=== PATIENT | female | born 1960 | race Asian ===

== ENCOUNTER 2018-06-10 00:48 | Inpatient (IN) | payer MEDICAID ==
[~2018-06-10] VITALS: Ht 170.2 cm; Wt 63.5 kg
[2018-06-10 02:06] LABS: BASOPHIL % 0.9 % (0-2); PLATELET COUNT 189 x10^3mcL (130-400); RED CELL DISTRIBUTION WIDTH 12.3 % (11.5-14.5)
[2018-06-10 02:14] LABS: CALCIUM 8.8 mg/dL (8.5-10.1); CARBON DIOXIDE 27.4 mmol/L (21-32); CHLORIDE SERUM 105 mmol/L (98-107); CREATININE SERUM 0.8 mg/dL (0.6-1.0); GFR1 > 60 mL/min; GLUCOSE SERUM 122 mg/dL (74-106); POTASSIUM SERUM 3.7 mmol/L (3.5-5.1); SODIUM SERUM 142 mmol/L (136-145)
[2018-06-10 02:19] LABS: ALBUMIN 4.2 g/dL (3.4-5.0); ALKALINE PHOSPHATASE 83 U/L (46-116); ALT/SGPT 22 U/L (14-59); AST/SGOT 15 U/L (15-37); BILIRUBIN TOTAL 0.34 mg/dL (0.20-1.00); TOTAL PROTEIN, SERUM 7.7 g/dL (6.4-8.2)
[2018-06-10 03:39] LABS: AMYLASE 94 U/L (25-115); CHOLESTEROL 158 mg/dL (<200); LIPASE 247 IU/L (73-393); MAGNESIUM 2.3 mg/dL (1.8-2.4); PHOSPHOROUS 3.8 mg/dL (2.5-4.9)
[2018-06-10 03:40] LABS: CHOLESTEROL/HDL RATIO 4.8; HDL CHOLESTEROL 33 mg/dL (40-60); TRIGLYCERIDES 508 mg/dL (<150)
[2018-06-10 03:47] VITALS: BP 146/83
[2018-06-10 05:45] VITALS: BP 122/77
[2018-06-10 07:41] LABS: CHOLESTEROL 165 mg/dL (<200)
[2018-06-10 07:43] LABS: CHOLESTEROL/HDL RATIO 5.2; HDL CHOLESTEROL 32 mg/dL (40-60); TRIGLYCERIDES 534 mg/dL (<150)
[2018-06-10 08:15] VITALS: BP 125/83
[2018-06-10] MEDS ORDERED: PRI20 PO (08:16)
[2018-06-10 09:21] VITALS: BP 122/77
[2018-06-10 09:32] LABS: microscopic required? NO
[2018-06-10 13:45] LABS: urine erythrocyte NEGATIVE (NEGATIVE)
== END 2018-06-10 10:45 | disposition home or self-care (01) | DRG 243 ==
LOC: ED 00:48 → DU 02:59
PROVIDERS: Emergency Medicine; General Practice
DX: K21.9 Gastro-esophageal reflux disease without esophagitis (principal); E78.00 Pure hypercholesterolemia, unspecified
CPT/HCPCS: 83880; Q0092